=== PATIENT | female | born 1995 | race Two or more races ===

== ENCOUNTER 2023-06-16 18:33 | Inpatient (IN) | payer MEDICAID ==
[~2023-06-16] VITALS: Ht 154.9 cm; Wt 75.3 kg
[2023-06-16 20:20] LABS: GLUCOMETER DEV NAME(LOC) POC.BV; POC SARS-COV2 AG, FIA NEGATIVE (NEGATIVE)
[2023-06-16] MEDS ORDERED: PNEUMOCOCCAL VACCINE POLYVALENT 0.5 ML SYRINGE [PPSV23] IM. ONE (21:00)
[2023-06-16 21:51] VITALS: BP 116/81; PULSE 68; RESP 18; TEMP 97.8; O2SAT 97
[2023-06-17] MEDS: LORazepam 2 MG TABLET PO PRN (04:40)
[2023-06-17] MEDS ORDERED: MAGNESIUM HYDROXIDE SUSPENSION 30 ML UDCUP PO PRN (06:00)
[2023-06-17] MEDS ORDERED: ACETAMINOPHEN 325 MG TABLET PO PRN (06:00)
[2023-06-17] MEDS ORDERED: ONDANSETRON HCL 4 MG TABLET PO PRN (06:00)
[2023-06-17] MEDS ORDERED: PETROLATUM,WHITE 28 GM JELLY TP PRN (06:00)
[2023-06-17] MEDS ORDERED: DOCUSATE SODIUM 100 MG CAPSULE PO PRN (06:00)
[2023-06-17] MEDS ORDERED: OMEPRAZOLE 20 MG CAPSULE PO PRN (06:00)
[2023-06-17] MEDS ORDERED: IBUPROFEN 600 MG TABLET PO PRN (06:00)
[2023-06-17] MEDS ORDERED: MAG HYDROX/ALUMINUM HYD/SIMETH ES 30 ML SUSPENSION UDCUP PO PRN (06:00)
[2023-06-17] MEDS ORDERED: CloNIDine HCL 0.1 MG TABLET PO PRN (06:00)
[2023-06-17] MEDS ORDERED: LOPERAMIDE HCL 2 MG CAPSULE PO PRN (06:00)
[2023-06-17] MEDS ORDERED: BACITRACIN 28 GM OINTMENT TP PRN (06:00)
[2023-06-17] MEDS ORDERED: BENZOCAINE/MENTHOL LOZENGE PO PRN (06:00)
[2023-06-17 08:20] VITALS: BP 106/65; PULSE 80; RESP 17; TEMP 97.8; O2SAT 97
[2023-06-17 08:44] LABS: BASOPHILS % (AUTO) 0.8 % (0.0-2.0); HEMOGLOBIN 14.3 g/dL (12.0-16.0); LYMPHOCYTES # (AUTO) 2.2 K/uL (1.0-4.8); LYMPHOCYTES % (AUTO) 32.3 % (22.0-44.0); MEAN CORPUSCULAR HEMOGLOBIN 29.4 pg (26.0-34.0); MEAN CORPUSCULAR HGB CONC 34.8 G/dL (31.0-37.0); MEAN CORPUSCULAR VOLUME 85 fL (80-100); MONOCYTES # (AUTO) 0.4 K/uL (0.1-1.0); NEUTROPHILS # (AUTO) 3.7 K/uL (1.8-7.7); NEUTROPHILS % (AUTO) 54.9 % (40.0-70.0); PLATELET COUNT (AUTO) 240 K/uL (150-450); RED BLOOD CELL COUNT(AUTO) 4.85 MIL/uL (4.00-5.20); RED CELL DISTRIBUTION WIDTH 12.3 % (11.5-14.5); WHITE BLOOD COUNT (AUTO) 6.7 K/uL (4.5-11.0)
[2023-06-17 08:57] LABS: HEMOGLOBIN A1C 4.6 % (3.8-5.6)
[2023-06-17 09:05] LABS: APPEARANCE,URINE CLEAR (CLEAR); BILIRUBIN,URINE NEGATIVE (NEGATIVE); COLOR,URINE LIGHT YELLOW (YELLOW); GLUCOSE, URINE (UA) NEGATIVE (NEGATIVE); KETONES,URINE NEGATIVE (NEGATIVE); LEUKOCYTE ESTERASE ,URINE NEGATIVE (NEGATIVE); NITRATE,URINE NEGATIVE (NEGATIVE); OCCULT BLOOD,URINE NEGATIVE (NEGATIVE); PROTEIN,URINE NEGATIVE (NEGATIVE); SPECIFIC GRAVITIY, URINE 1.018 (1.003-1.030); UROBILINOGEN,URINE <=1.0 mg/dL (<=1.0)
[2023-06-17 09:12] LABS: ALCOHOL, URINE DRUG SCREEN NEGATIVE (NEGATIVE); AMPHET/METH SCREEN,URINE NEGATIVE (NEGATIVE); BARBITURATE SCREEN, URINE NEGATIVE (NEGATIVE); BENZODIAZEPINES SCREEN,URINE NEGATIVE (NEGATIVE); CANNABINOID SCREEN,URINE NEGATIVE (NEGATIVE); COCAINE SCREEN,URINE NEGATIVE (NEGATIVE); METHADONE SCREEN, URINE NEGATIVE (NEGATIVE); OPIATE SCREEN,URINE NEGATIVE (NEGATIVE); PHENCYCLIDINE SCREEN,URINE NEGATIVE (NEGATIVE)
[2023-06-17 10:02] LABS: ALANINE AMINOTRANSFERASE 21 U/L (12-78); ALBUMIN 3.2 g/dL (3.4-5.0); ALKALINE PHOSPHATASE 81 U/L (46-116); ANION GAP 10 mmol/L (8-16); ASPARTATE AMINOTRANSFERASE 16 U/L (15-37); BILIRUBIN,TOTAL 0.4 mg/dL (0.1-1.0); CARBON DIOXIDE 25 mmol/L (22-29); CHLORIDE 105 mmol/L (98-107); CHOLESTEROL 144 mg/dL (131-200); CREATININE 0.77 mg/dL (0.60-1.30); FREE T4 (FREE THYROXINE) 1.02 ng/dL (0.76-1.46); GLOMERULAR FILTR. RATE CALC > 60 mL/min (>60); GLUCOSE,RANDOM 69 mg/dL (70-110); HDL CHOLESTEROL 48 mg/dL (40-60); LDL CHOL (CALC.) 85 mg/dL (0-130); POTASSIUM 3.6 mmol/L (3.5-5.1); SODIUM SERUM 140 mmol/L (136-145); THYROID STIMULATING HORMONE 2.54 uIU/mL (0.36-3.74); TOTAL PROTEIN, SERUM 6.4 g/dL (6.4-8.2); TRIGLYCERIDES 55 mg/dL (15-150); UREA NITROGEN, BLOOD 12 mg/dL (7-18)
[2023-06-17] MEDS: DIVALPROEX SODIUM 500 MG DR TABLET PO SCH (11:25)
[2023-06-17] MEDS: LITHIUM CARBONATE 300 MG CAPSULE PO SCH (16:49)
[2023-06-17 20:22] VITALS: BP 119/77; PULSE 93; RESP 18; TEMP 98; O2SAT 98
[2023-06-17] MEDS: ZOLPIDEM TARTRATE 10 MG TABLET PO PRN (22:55)
[2023-06-17 23:30] VITALS: BP 113/76; PULSE 78; RESP 17; TEMP 96.9
[2023-06-18 08:06] VITALS: BP 108/60; PULSE 73; RESP 17; TEMP 97.2; O2SAT 99
[2023-06-18 20:05] VITALS: BP 123/75; PULSE 93; RESP 18; TEMP 97; O2SAT 98
[2023-06-19 08:23] VITALS: BP 110/67; PULSE 76; RESP 16; TEMP 97.6; O2SAT 100
[2023-06-19 22:59] VITALS: BP 119/78; PULSE 85; RESP 18; TEMP 97.6; O2SAT 100
[2023-06-20 08:26] VITALS: BP 116/66; PULSE 79; RESP 16; TEMP 97.6; O2SAT 97
[2023-06-20 20:07] VITALS: BP 112/59; PULSE 100; RESP 20; TEMP 97.7; O2SAT 100
[2023-06-21 08:23] VITALS: BP 114/74; PULSE 86; RESP 16; TEMP 97.9; O2SAT 98
[2023-06-21 20:07] VITALS: BP 125/82; PULSE 85; RESP 20; TEMP 97.8; O2SAT 94
[2023-06-22 10:30] VITALS: BP 111/64; PULSE 88; RESP 17; TEMP 97.3; O2SAT 97
[2023-06-22] MEDS: HALOPERIDOL 5 MG TABLET PO PRN (13:40)
[2023-06-22 20:51] VITALS: BP 109/72; PULSE 99; RESP 16; TEMP 97.5; O2SAT 97
[2023-06-23 10:31] VITALS: BP 111/72; PULSE 95; RESP 17; TEMP 97.7; O2SAT 100
[2023-06-24 08:36] VITALS: BP 118/73; PULSE 86; RESP 16; TEMP 97.9; O2SAT 99
[2023-06-24 20:59] VITALS: BP 114/61; PULSE 90; RESP 16; TEMP 97.9; O2SAT 99
[2023-06-25 13:52] VITALS: RESP 17
[2023-06-25 17:26] VITALS: BP 126/75
[2023-06-25 20:18] VITALS: BP 126/75; PULSE 86; RESP 18; O2SAT 98
[2023-06-26 12:52] VITALS: BP 118/75; PULSE 92; RESP 18; TEMP 98.1; O2SAT 98
[2023-06-26 20:50] VITALS: BP 138/85; PULSE 89; RESP 18; TEMP 98.4; O2SAT 97
[2023-06-27 09:56] VITALS: BP 132/86; PULSE 83; RESP 18; TEMP 97.9; O2SAT 96
[2023-06-27 22:09] VITALS: BP 121/86; PULSE 89; RESP 17; TEMP 98.1; O2SAT 98
[2023-06-28 08:40] VITALS: BP 115/69; PULSE 82; RESP 19; TEMP 98.1; O2SAT 99
[2023-06-28 20:35] VITALS: BP 121/80; PULSE 88; RESP 16; TEMP 97.8; O2SAT 98
[2023-06-29 08:06] LABS: HIV 1-2 SCREEN 4TH GEN W/RFLX Non Reactive (Non Reactive)
[2023-06-29 08:09] VITALS: BP 110/58; PULSE 80; RESP 18; TEMP 97.5; O2SAT 98
[2023-06-29 20:13] VITALS: BP 126/76; PULSE 85; RESP 18; TEMP 98.6; O2SAT 97
[2023-06-30 08:19] VITALS: BP 115/64; PULSE 76; RESP 18; TEMP 97.9; O2SAT 98
[2023-06-30 20:17] VITALS: BP 136/86; PULSE 82; RESP 18; TEMP 97.6; O2SAT 96
[2023-07-01 08:06] LABS: HEPATITIS A ANTIBODY IGM Negative (Negative); HEPATITIS B CORE IGM Negative (Negative); HEPATITIS C AB (EIA) Non Reactive (Non Reactive)
[2023-07-01 08:11] VITALS: BP 124/79; PULSE 90; RESP 18; TEMP 97.8; O2SAT 99
[2023-07-01] MEDS: ALBUTEROL SULFATE HFA 90 MCG/PUFF 8 GM INHALER IH PRN (16:31)
[2023-07-01 20:19] VITALS: BP 121/76; PULSE 79; RESP 17; TEMP 97.6; O2SAT 98
[2023-07-02 08:15] VITALS: BP 118/84; PULSE 80; RESP 19; TEMP 97.7; O2SAT 98
[2023-07-02] MEDS ORDERED: LITH300C3 PO (13:31)
[2023-07-02] MEDS ORDERED: DIVA-112 PO (13:32)
[2023-07-03] MEDS ORDERED: LITH300C3 PO (08:06)
[2023-07-03] MEDS ORDERED: DIVA-112 PO (08:06)
== END 2023-07-02 15:20 | disposition home or self-care (01) | DRG 750 ==
LOC: B2S 18:44 → B3A 06-17 23:32 → B2S 06-25 13:37
PROVIDERS: ADMIT Psychiatry & Neurology Psychiatry; ATTEND Psychiatry & Neurology Psychiatry
DX: F25.1 Schizoaffective disorder, depressive type (principal); F79 Unspecified intellectual disabilities; R45.851 Suicidal ideations; F41.9 Anxiety disorder, unspecified; G47.00 Insomnia, unspecified; Z20.822 Contact with and (suspected) exposure to COVID-19; K21.9 Gastro-esophageal reflux disease without esophagitis; K59.00 Constipation, unspecified; Z79.899 Other long term (current) drug therapy
CPT/HCPCS: 80053; 80061; 80074; 80164; 80307; 81003; 83036; 84439; 84443; 84703; 85025; 86592; 87389; 87491; 87591; J3535